=== PATIENT | female | born 1975 ===

== ENCOUNTER 2017-12-10 10:26 | Emergency (ER) | payer SELFPAY ==
[2017-12-10 11:09] VITALS: BP 119/73
--- NOTE | 2017-12-10 11:13 | UC ---
Skin Complaint HPI - HPI Summary HPI Summary: 42 yo female presents with pain, swelling, and bump to left cheek first noticed yesterday. She tells me that she has been feeling more tired than usual over the past week, but felt fine otherwise until yesterday. This morning the area was more swollen, painful, and red than yesterday. Denies fever, chills, vision changes, headache, sinus pressure/congestion, or insect bite to the area. - History of Current Complaint Chief Complaint: UCSkin Stated Complaint: LFT SIDE FACIAL COMPLAINT Hx Obtained From: Patient Hx Last Menstrual Period: 11/18/17 Onset/Duration: Sudden Onset Onset Severity: Moderate Current Severity: Moderate Pain Intensity: 6 Pain Scale Used: 0-10 Numeric - Allergy/Home Medications Allergies/Adverse Reactions: Allergies Allergy/AdvReac Type Severity Reaction Status Date / Time No Known Allergies Allergy Verified 12/10/17 10:56 Home Medications: Home Medications Acetaminophen TAB* [Tylenol TAB*] 650 mg PO Q4H PRN 12/10/17 [History Confirmed 12/10/17] Esomeprazole(NF) [NexIUM(NF)] 40 mg PO DAILY 12/10/17 [History Confirmed ] Review of Systems Constitutional: Negative Skin: Other - Swelling and pain left cheek Eyes: Negative Respiratory: Negative Cardiovascular: Negative Neurovascular: Negative Neurological: Negative Psychological: Negative All Other Systems Reviewed And Are Negative: Yes PMH/Surg Hx/FS Hx/Imm Hx Previously Healthy: Yes GI/ History: Gastroesophageal Reflux - Surgical History Surgical History: Yes Surgery Procedure, Year, and Place: gastric sleave. - Family History Known Family History: Positive: None - Social History Occupation: Employed Full-time Lives: With Family Alcohol Use: Occasionally Substance Use Type: None Smoking Status (MU): Light Every Day Tobacco Smoker Type: Cigarettes Amount Used/How Often: 3 cigs per day Physical Exam - Summary Physical Exam Summary: GENERAL: NAD. WDWN. No pain distress. SKIN: LEFT maxillary: 1.0cm hard nodule medial maxillary area. Mild surrounding redness, pain, and swelling. No streaking, bleeding, or drainage. HEENT: Head: AT/NC Eyes: EOM intact and without pain. Conjunctiva clear without inflammation or discharge. Ears: Hearing grossly normal. TMs intact, no bulging, erythema, or edema. Nose: Nasal mucosa pink and moist. Throat: Posterior oropharynx without exudates, erythema, or tonsillar enlargement. Uvula midline. NECK: Supple. Nontender. No lymphadenopathy. CHEST: No accessory muscle use. Breathing comfortably and in no distress. CV: Pulses intact NEURO: Alert. CN II-XII grossly intact. PSYCH: Age appropriate behavior. Triage Information Reviewed: Yes Vital Signs: Initial Vital Signs Temp 98 F 12/10/17 10:59 Pulse 66 12/10/17 10:59 Resp 16 12/10/17 10:59 BP 119/73 12/10/17 10:59 Pulse Ox 100 12/10/17 10:59 Course/Dx - Course Course Of Treatment: CT: IMPRESSION: #. The constellation of findings is most consistent with mild LEFT preseptal orbital cellulitis with involvement of the malar eminence. No loculated abscess collection evident. #. No evidence for paranasal sinus disease. Rx for Clindamycin and advised her to go to the ED if she develops a fever or worsening symptoms. - Diagnoses Provider Diagnoses: LEFT preseptal orbital cellulitis Discharge - Sign-Out/Discharge Documenting (check all that apply): Patient Departure - Discharge Plan Condition: Stable Disposition: HOME Prescriptions: Clindamycin Cap(NF) [Clindamycin Cap 300 mg Cap(NF)] 300 mg PO TID #21 cap Patient Education Materials: Orbital Cellulitis (ED) Referrals: No Primary Care Phys,NOPCP [Primary Care Provider] - Additional Instructions: If you develop a fever, shortness of breath, chest pain, new or worsening symptoms - please call your PCP or go to the ED. - Billing Disposition and Condition Condition: STABLE Disposition: Home
[2017-12-10] MEDS ORDERED: Iohexol 300* (CONTRAST) 10 ML SDV IV ONE (12:02)
--- NOTE | 2017-12-10 13:10 | RAD ---
Indication: LEFT facial swelling/palpable nodule began yesterday. Warm to touch. Comparison: No relevant prior exams available on the [facility] PACS for comparison. Technique: Contrast-enhanced maxillofacial CT with 75 mL Omnipaque 300 IV contrast. Multiplanar reformation. Report: Artifact from dental amalgam. Mild soft tissue edema at the level of the LEFT malar eminence and preseptal region on the LEFT orbit without evidence for a loculated superficial soft tissue plane fluid collection. No inflammatory change or fluid collection evident in the post septal LEFT orbit. The ocular globes are symmetric. No subcutaneous emphysema or conspicuous foreign body evident. The orbital and maxillary sinus margins, zygomatic arches, lamina papyracea, base of the maxilla, pterygoid plates, and nasal bones are intact. The mandible is intact. Normal temporal mandibular joint alignment. Clear paranasal sinuses, nasal cavity, and mastoid air spaces. IMPRESSION: #. The constellation of findings is most consistent with mild LEFT preseptal orbital cellulitis with involvement of the malar eminence. No loculated abscess collection evident. #. No evidence for paranasal sinus disease. #. Keenan images saved on the [facility] PACS.
== END 2017-12-10 13:36 | disposition home or self-care (01) ==
LOC: UCCORT 10:26
DX: H05.012 Cellulitis of left orbit (principal); K21.9 Gastro-esophageal reflux disease without esophagitis; F17.210 Nicotine dependence, cigarettes, uncomplicated
CPT/HCPCS: 70487; 99202; G0463; Q9967